=== PATIENT | female | born 1940 | race Caucasian/White ===

== ENCOUNTER 2017-05-09 10:35 | Emergency (ER) | payer MEDICARE, OTHER ==
[~2017-05-09] VITALS: Ht 154.9 cm; Wt 74.8 kg
[~2017-05-09 10:35] MED LIST: ACETAMINOPHEN325 M1 PO; ADULT LOW DOSE81 MG PO; ALLEGRA180 MG PO; AMOXICILLIN 50500 MG PO; ASPIRIN81 M2; BACTROBAN CREAM30 G1 TOP; CALCIUM; COLESTID1 GM PO; DARVOCET-N 1001 EAC1 PO; FISH OIL 1,001000 M2 PO; FLEXERIL PO; FLONASE NS; GLUCOSAMINE HC500 MG PO; HYDROCODON-ACE1 EAC7; LEVOTHYROXIN0.025 MG; METAMUCIL197.2 GM PO; MIRALAX255 GM PO; MOM PO; NAPROSYN500 MG PO; NEPHROCAPS SOFT1 CAP PO; OMEPRAZOLE20 M2 PO; OXYIR 5 MG CAPSU5 M1 PO; PERCOCET 5-3251 EACH PO; PREVACID15 MG PO; PRILOSEC 20 MG20 MG PO; SIMVASTATIN40 MG PO; TUMS PO; ULTRAM 50MG TAB50 MG PO; UNICOMPLEX M TA1 TA1 PO; VITAMIN D1000 UNI1 PO
[2017-05-09 13:06] VITALS: BP 127/66
== END 2017-05-09 13:08 | disposition home or self-care (01) ==
LOC: M.ERS 10:35
DX: S91.331A Puncture wound without foreign body, right foot, initial encounter (principal); B34.9 Viral infection, unspecified; K21.9 Gastro-esophageal reflux disease without esophagitis; Z88.0 Allergy status to penicillin; Z88.1 Allergy status to other antibiotic agents; Z88.2 Allergy status to sulfonamides; Z90.49 Acquired absence of other specified parts of digestive tract; Z98.890 Other specified postprocedural states; W22.8XXA Striking against or struck by other objects, initial encounter; Y93.89 Activity, other specified; Y92.89 Other specified places as the place of occurrence of the external cause; Y99.8 Other external cause status

== ENCOUNTER → 2018-04-06 | Outpatient (CLI) | payer MEDICARE, OTHER | LOC: M.RAD 09:17 | DX: Z12.31 Encounter for screening mammogram for malignant neoplasm of breast (principal) ==

== ENCOUNTER → 2019-03-28 | Outpatient (CLI) | payer MEDICARE, OTHER | LOC: M.RAD 12:32 | DX: Z12.31 Encounter for screening mammogram for malignant neoplasm of breast (principal) ==

== ENCOUNTER → 2020-04-01 | Outpatient (CLI) | payer MEDICARE, OTHER | LOC: M.RAD 12:57 | PROVIDERS: ATTEND Nurse Practitioner Family | DX: Z12.31 Encounter for screening mammogram for malignant neoplasm of breast (principal); N64.89 Other specified disorders of breast ==

== ENCOUNTER → 2021-03-31 | Outpatient (CLI) | payer MEDICARE, OTHER | LOC: M.RAD 10:02 | PROVIDERS: ATTEND Nurse Practitioner Family | DX: Z12.31 Encounter for screening mammogram for malignant neoplasm of breast (principal) ==